=== PATIENT | female | born 1940 | race Caucasian/White ===

== ENCOUNTER → 2022-10-22 | Outpatient (CLI) | payer BC, SELFPAY ==
--- NOTE | 2022-10-22 | IMM_PTH ---
PATIENT: KRISTINA BERNAL LOC: [facility] U#:[id number] AGE/SX: 82/F ROOM: RE10/22/[address]: Dr. Jose Becker MD : 1940 BED: DIS: 10/22/2022 SPEC #: [id number] RECD: 10/23/22 14:12 STATUS: ELI REGary #: [id number] SABINE: 10/22/22 00:[address]: Jose Becker DEPT: IMMUNOHISTOCHEMISTRY RECD BY: Aide Mata ENTERED: 10/23/22 14:13 SP TYPE: IMMUNO OTHR DR: Dr. Andrey Teran MD Tissues: Right breast, NOS Procedures: E-CAD (initial) SMA (add) CALPONIN-1 (add) P40 (add) PHYSICIAN & INSTITUTION [facility] [id number] SPECIMEN INFORMATION: Tissue Source: Right breast Clinical Info: Right breast lesion anterior depth 9-10 o'clock Specimen Number: [id number] #1 & 2 CPT code: 78244, 87138 x5 METHODOLOGY: Deparaffinized sections of prefer/formalin-fixed tissue or PAP/DQ stained slides are incubated with monoclonal/polyclonal antibodies/oligonucleotide probes. Localization is made via biotin free immunoperoxidase method. Appropriate controls are performed and reacted as expected. Results on target cell population are indicated in the following table: RESULTS: ANTIBODY / CLONE RESULT Block 1 P40 (BC28) positive Calponin-1 (BQ336A) positive Block 2 E-Cad (ECH-6) negative P40 (BC28) positive Calponin-1 (UG248V) positive Actin (1A4) positive These tests were developed and their performance characteristics determined by [facility]. They may not have been cleared or approved by the [place]. Food and Drug Administration. The FDA has determined that such clearance or approval is not necessary. The above immunohistochemical/dualISH markers are ordered and reviewed by the Pathologist. INTERPRETATION: Right breast, stereotactic core biopsy: - Focal atypical lobular hyperplasia - Intraductal papilloma AM:delmy 10/24/22
--- NOTE | 2022-10-22 11:35 | BRBX_PTH ---
PATIENT: KRISTINA BERNAL LOC: [facility] U#:[id number] AGE/SX: 82/F ROOM: RE10/22/[address]: Dr. Jose Becker MD : 1940 BED: DIS: 10/22/2022 SPEC #: [id number] RECD: 10/22/22 12:55 STATUS: ELI ROMI #: [id number] SABINE: 10/22/22 11:[address]: Jose Becker DEPT: SURGICAL PATHOLOGY RECD BY: Delores Bui ENTERED: 10/22/22 13:26 SP TYPE: BREAST BX OTHR DR: Dr. Andrey Teran MD Tissues: Right breast, NOS Procedures: Surgery Specimen Level IV HEADER OPERATION: Right breast stereotactic biopsy PRE-OP DIAGNOSIS: Right breast lesion anterior depth 9-10 o'clock TISSUE SUBMITTED: Right breast core tissue ISCHEMIC TIME: 1 minute FIXATION TIME: 8 hours MICROSCOPIC DIAGNOSIS Right breast, stereotactic core biopsy: Focal atypical lobular hyperplasia with associated microcalcifications. Fibrocystic change. Adenosis. Focal intraductal hyperplasia without atypia. Fragments of intraductal papilloma. Banal microcalcifications. See comment. AM:clare 10/23/2022 COMMENT Immunohistochemistry ([id number]) supports the above diagnosis. MICROSCOPIC DESCRIPTION Slides are reviewed. GROSS DESCRIPTION Received is one container labeled with the patient's name and not further designated. The specimen consists of multiple irregular and elongated fragments of yellow-dennison soft tissue that in aggregate measure 5.0 x 3.5 x 0.2 cm. The specimen is totally submitted in two cassettes. / AM:clare 10/22/2022 TC:0 CPT: 45282
--- NOTE | 2022-10-22 11:36 | PCM.HP.BLA ---
History and Physical Date of Admission: 10/22/22 Visit Reasons: BIRADS 3 Chief Complaint: birads 3 Is patient in pain?: No Allergies Bdelgrh-JRM-OyQ Reductase Inhibitor [Plcvvyw-Cey-Kct Reductase Inhibitor] Adverse Reaction (Intermediate, Verified 10/09/22 12:42) muscle pain Medications aspirin 81 mg tablet,delayed release (Adult Aspirin Regimen) 81 mg PO DAILY 07/21/20 [History Confirmed 10/09/22] bimatoprost 0.01 % eye drops (Lumigan) 1 drp ophthalmic (eye) QPM 07/21/20 [History Confirmed 10/09/22] cholecalciferol (vitamin D3) PO DAILY 07/21/20 [History Confirmed 10/09/22] enalapril maleate 10 mg tablet 10 mg PO DAILY 07/21/20 [History Confirmed 10/09/22] garlic PO DAILY 07/21/20 [History Confirmed 07/21/20] krill oil PO DAILY 07/21/20 [History Confirmed 07/21/20] memantine 10 mg tablet (Namenda) 10 mg PO DAILY 07/21/20 [History Confirmed 10/09/22] milk thistle PO DAILY 07/21/20 [History Confirmed 07/21/20] multivitamin 1 tab PO DAILY 07/21/20 [History Confirmed 10/09/22] niacin 500 mg tablet 1,000 mg PO QHS 07/21/20 [History Confirmed 07/21/20] omeprazole 20 mg capsule,delayed release 20 mg PO DAILY 07/21/20 [History Confirmed 10/09/22] paroxetine HCl 20 mg tablet 20 mg PO DAILY 07/21/20 [History Confirmed 10/09/22] ropinirole 2 mg tablet 2 mg PO QHS 07/21/20 [History Confirmed 07/21/20] triamterene 37.5 mg-hydrochlorothiazide 25 mg capsule 1 cap PO DAILY 07/21/20 [History Confirmed 10/09/22] glimepiride 2 mg tablet 2 mg PO BID #180 tabs 08/25/20 [Rx Confirmed 10/09/22] metformin 500 mg tablet 1,000 mg (2 x 500 mg) PO BID #360 tabs 11/15/20 [Rx Confirmed 10/09/22] Kenneth Melton U-100 Insulin 100 unit/mL (3 mL) subcutaneous (insulin glargine) 40 unit (0.4 mL) subcut QPM #15 mL 12/20/20 [Rx Confirmed 10/09/22] pen needle, diabetic 32 gauge x 5/32 (BD Ultra-Fine Dana Pen Needle) #50 ea 12/20/20 [Rx Confirmed 12/20/20] PFSH Medical History Arthritis Cataracts, bilateral Diabetes Glaucoma High cholesterol Hypertension Obesity Family History Father Arthritis MelanomaSister Breast cancerMother Diabetes Hypertension Social History Smoking Status: Never smoker alcohol intake: never substance use type: does not use what type of physical activity do you participate in: none HPI HPI HPI: 82-year-old female is being referred by Dr. Andrey Teran for surgical consultation regarding a BI-RADS 3 mammogram. A written copy of my surgical consult recommendations will be returned to him. Right breast ultrasound performed at [facility] September 25, 2022 shows a solid suspicious appearing lesion with likely benign morphology anterior depth 9 o'clock position only 4 x 4 x 4 mm. She has had bilateral screening mammograms at [facility] on September 20, 2022 in the right breast 10 o'clock position there is a 4 x 5 x 6 mm lesion. I have personally reviewed these images and the item in question is quite small. 82-year-old female. G4, . First live was when she was 22. She does not remember menarche. She thinks she has had a previous breast biopsy but she is very vague on that. She has not had any change in her own self exam ROS General General: No weight change, appetite, fatigue, colon cancer, breast cancer or weakness HEENT HEENT: Yes eye surgery; No difficulty swallowing, eye injury, swollen glands or hoarseness Endo Endocrine: Yes diabetes mellitus; No thyroid disease, thyroid cancer, Hair loss, heat intolerance or cold intolerance Skin Skin: No rash or changing moles Breast Breast: Yes abnormal mammogram and abnormal US; No left breast lump, right breast lump, nipple discharge, breast pain or breast enlargement Musc Musculoskeletal: Yes arthritis; No back problems, rheumatoid arthritis, gout or joint pain Cardio Cardiovascular: Yes high blood pressure; No murmur, pacemaker, heart disease, atrial fibrillation, heart attack, heart stent, palpitations, shortness of breat with exertion or chest pain Psych Psychiatric: No depression, anxiety or hearing voices Resp Respiratory: No shortness of breath, No sleep apnea, No cough, No COPD, No asthma, No emphysema and No wheezing Gastro Gastrointestinal: No abdominal pain, No nausea or vomiting, No diarrhea, No constipation, No blood in stool, No acid reflux, No hemorrhoids, No ulcers, No gallbladder problem and No black,tarry stools Aniket Hematologic: No blood thinners, No blood disorders, No bleeding, No anemia and No blood clots Neuro Neurologic: No system reviewed and no additional complaints, except as documented, No as per HPI, No abnormal gait, No abnormal hearing, No abnormal movements, No abnormal speech, No behavioral changes, No burning sensations, No confusion, No convulsions, No disequilibrium, No dizziness, No localized weakness, No frequent falls, No headache(s), No lack of coordination, No loss of vision, No memory loss, No numbness, No other visual disturbances, No radicular pain, No restless legs, No sensory deficit, No syncope, No tingling, No tremor(s), No weakness and No other Exam Chest Other: Bilateral breast pendulous and with multiple skin lesions fibrous. No focally concerning mass. No nipple discharge. No axillary or clavicular adenopathy Resp Effort & Inspection: normal respiratory effort Auscultation: clear to auscultation bilaterally Assessment and Plan Assessment and Plan (1) Abnormal mammogram of right breast: Status: Acute Plan: I recommended to the patient a stereotactic needle core upper outer quadrant right breast biopsy 10 o'clock position. Then I would want to pursue an ultrasound inspection to see if the marking clip matches up with what is on preoperative imaging. She is aware of the technique, benefit, risk, alternatives. She has had an opportunity to ask and have questions answered. We will schedule and proceed at her discretion. I appreciate the opportunity of assisting with her surgical care. Copy: Dr. Andrey Becker M.D., F.A.C.S. I have examined the patient and the H&P has been reviewed. There are no clinical changes since date of exam. Jose Becker M.D., F.A.C.S.
--- NOTE | 2022-10-22 12:25 | PCM.OPRPT ---
Report of Operation Date of Procedure: 10/22/22 Pre-Operative Diagnosis: Density outer mid right breast Post-Operative Diagnosis: Same Surgery/Procedure Performed:: Stereotactic needle core biopsy density outer mid right breast Description of Surgical Findings:: Timeout and informed consent was obtained. 82-year-old female was taken to the mammography suite and placed prone on the table. The right breast was placed in a cc view. The density in question was rapid identified. Stereotactic images were obtained. Digital information was obtained on a single target site. The breast was prepped with Betadine. 1% lidocaine was used as a local anesthetic. 10 cc was used. A small stab incision was created. An 8 gauge resolved needle was advanced to prefire depth. Prefire films were obtained. Adequate localization was obtained. The device was fired. 6 cores were obtained. Specimen mammograms were obtained demonstrating a couple cores with microcalcifications. A marking clip was left at the 12 o'clock position. She was released from the device pressure was held for hemostasis Steri-Strip Telfa OpSite dressing applied. The specimens were immediately transferred to formalin for analysis. Blood loss was minimal. She tolerated the procedure well. Specimens cores. Drains none. Blood loss minimal. The patient will have further surgical follow-up as indicated. I anticipate approximately 4 weeks of right breast ultrasound to confirm that the marking clip from the stereotactic biopsy is in the location of the suspected ultrasound lesion 10 o'clock position right breast Jose Becker M.D., F.A.C.S. Surgeon: Jose Becker
== END | disposition home or self-care (01) ==
LOC: BIRAD 11:11
PROVIDERS: PCP Family Medicine; Visit Provider Surgery
DX: R92.8 Other abnormal and inconclusive findings on diagnostic imaging of breast (principal); E11.9 Type 2 diabetes mellitus without complications; Z80.3 Family history of malignant neoplasm of breast; I10 Essential (primary) hypertension; E78.00 Pure hypercholesterolemia, unspecified; Z79.82 Long term (current) use of aspirin
CPT/HCPCS: 19081; 88305; 88341; 88342; J7050

== ENCOUNTER → 2022-11-22 | Outpatient (CLI) | payer BC, SELFPAY ==
--- NOTE | 2022-11-22 13:25 | US_ITS ---
STUDY: ULTRASOUND BREAST - RIGHT REASON FOR EXAM: Female, 82 years old. Prior right breast biopsy. Placement of clip marker. TECHNIQUE: Axial and longitudinal images of the RIGHT breast were performed with a high resolution ultrasound transducer. # OF IMAGES: 16 COMPARISON: None. FINDINGS: RIGHT Breast: A biopsy clip is seen within the 6 mm x 4 mm x 3 mm hypoechoic nodule at the 9:00 position of the breast at 3 cm from the nipple. Patient 1.4 cm x 0.7 cm x 0.5 cm fluid collection adjacent to the biopsy site. US/Breast Limited Unilateral IMPRESSION: Indication clip is seen within the nodule that has been biopsied at the 9:00 position of the breast at 3 cm from the nipple. There is a 1.4 cm x 0.7 cm x 0.5 cm fluid collection adjacent to the biopsy site. ASSESSMENT CATEGORY: BIRADS Category 2: Benign. A letter regarding these results will be sent to the patient by the facility within 30 days. Electronically Signed: Vasquez Dow MD at 15:30 EDT ,
== END | disposition home or self-care (01) ==
LOC: OPUS 13:23
PROVIDERS: PCP Family Medicine; Referring Provider Surgery; Visit Provider Surgery
DX: R92.8 Other abnormal and inconclusive findings on diagnostic imaging of breast (principal)
CPT/HCPCS: 76642